=== PATIENT | female | born 1945 | race Caucasian/White ===

== ENCOUNTER → 2016-11-20 | Outpatient (CLI) | payer OTHER ==
[~2016-11-20] MED LIST: ANAPROX DS550 MG PO; BONIVA150 MG; CYMBALTA20 MG PO; FEROSUL325 MG PO; FLEXERIL10 MG PO; HYDROCODONE BIT1 T11 PO; KEFLEX500 MG PO; LIDEX0.05% T; LISINOPRIL5 MG PO; LOVENOX30 MG/0.3 SC; MULTIVITAMIN1 CTB PO; NEURONTIN100 MG; NEURONTIN100 MG PO; PERCOCET 325 MG1 TA7 PO; PREDNISONE20 MG PO; PRILOSEC20 MG PO; SYNTHROID,LEV100 MCG PO; SYNTHROID,LEVOTHROID; TORADOL10 MG PO; VICODIN 5/500 505 MG PO; ZITHROMAX Z PA250 MG PO; ZOLOFT50 MG PO; [UNRECOGNIZED DRUG - OTHER] PO
[2016-11-20 08:06] LABS: BASO # 0.1 10*3/uL (0.0-0.1); BASO % 0.7 % (0.0-1.0); EOS # 0.2 10*3/uL (0.0-0.4); EOS % 2.6 % (1.0-4.0); HEMATOCRIT 41.1 % (37.0-47.0); HEMOGLOBIN 13.4 g/dl (12.0-16.0); LYMPH % 26.8 % (27.0-41.0); MEAN CELL VOLUME 96.9 fl (81.0-99.0); MEAN CORPUSCULAR HGB 31.6 pg (27.0-31.0); MEAN CORPUSCULAR HGB CONC 32.6 g/dl (33.0-37.0); MEAN PLATELET VOLUME 10.6 fl (9.6-12.3); MONO # 0.7 10*3/uL (0.1-1.0); MONO % 9.2 % (3.0-9.0); NEUT # 4.5 10*3/uL (2.3-7.9); NEUT % 60.6 % (47.0-73.0); PLATELET COUNT AUTOMATED 254 10*3/uL (130-400); RED BLOOD COUNT 4.24 10*6/uL (4.10-5.10); RED CELL DISTRI WIDTH 14.4 % (0-14.5); WHITE BLOOD COUNT 7.4 10*3/uL (4.8-10.8)
[2016-11-20 08:42] LABS: ALBUMIN 3.5 gm/dl (3.1-4.5); ALKALINE PHOSPHATASE 91 U/L (45-117); BILIRUBIN, TOTAL 0.4 mg/dl (0.2-1.0); BUN 30 mg/dl (7-24); CARBON DIOXIDE 28 mmol/L (21-32); CHLORIDE 106 mmol/L (98-107); CHOLESTEROL 201 mg/dL (<200); EST GLOM FILT AFRICAN AMERICAN > 60 ml/min; GLUCOSE 96 mg/dL (65-99); HDL CHOLESTEROL 66 mg/dl (40-60); LDL CHOLESTEROL 117 mg/dL (9-159); POTASSIUM 4.5 mmol/L (3.5-5.1); SGOT/AST 22 IU/L (3-35); SGPT/ALT 22 U/L (12-78); SODIUM 142 mmol/L (136-145); TOTAL PROTEIN 7.2 gm/dL (6.4-8.2); TRIGLYCERIDES 88 mg/dl (<150); VLDL CHOLESTEROL 18 mg/dL (6-40)
== END | disposition home or self-care (01) ==
LOC: LAB 07:40
PROVIDERS: Nurse Practitioner Family
DX: J44.9 Chronic obstructive pulmonary disease, unspecified (principal); E03.9 Hypothyroidism, unspecified

== ENCOUNTER → 2016-12-19 | Outpatient (CLI) | payer OTHER | END | disposition home or self-care (01) | LOC: LAB 12:03 | DX: E03.9 Hypothyroidism, unspecified (principal) ==

== ENCOUNTER 2018-07-21 13:23 | Inpatient (IN) | payer OTHER ==
[~2018-07-21] VITALS: Ht 157.5 cm; Wt 76.7 kg
--- NOTE | ~2018-07-21 | CON ---
[place], [place] REPORT OF CONSULTATION NAME: MERRICK HERNANDEZ [facility] #: [id number] UNIT #: [id number] ROOM: 427 DOCTOR: JEAN DHILLON MD BIRTHDATE: [birth year] DOS: 07/22/2018 PULMONARY CONSULTATION, EVALUATION, AND MANAGEMENT CONSULTATION REQUESTED BY: Hospitalist service. REASON FOR CONSULTATION: For assessment of acute abnormal respiratory symptoms. HISTORY OF PRESENT ILLNESS: This is a 73-year-old white female patient, who has been admitted to the hospital as the patient developed acute respiratory symptoms at home prior to admission to the hospital. She started with having upper respiratory tract symptom about 4 weeks ago, which has not been improving at home. The patient has been given 2 antibiotic as medication as an outpatient by the primary care physician, no improvement in respiratory symptoms reported. She has been noted severe coughing and also developed severe general weakness and fatigue. She came into the Emergency Room and was started on antibiotics and other medical management provided resulting in reduction of respiratory symptoms in the last 24 hours. The patient denies symptoms of fever or chills with current symptom. PAST MEDICAL HISTORY: Known with: 1. History of gastroesophageal reflux. 2. Carter's esophagus. 3. Depression. 4. Hypothyroidism. 5. Essential hypertension. 6. History of shingles. PAST SURGICAL HISTORY: Reported several that includes: 1. Appendectomy. 2. Cholecystectomy. 3. Right oophorectomy. 4. Tonsillectomy. 5. Surgery of the cervical spine with fusion of the neck. HOME MEDICATIONS: Home medications were listed as Cymbalta, hydrochlorothiazide, levothyroxine, and ranitidine. CURRENT MEDICATIONS: Current medications which were administered on this hospitalization were reviewed were noted use of DuoNeb, hydrochlorothiazide, Cymbalta, famotidine, levothyroxine, Solu-Medrol 40 mg b.i.d., cefepime IV, morphine sulfate, and other p.r.n. medications. DRUG ALLERGIES: NOTED ALLERGY TO THE [facility] DRUGS. SOCIAL HISTORY: The patient is noted nonsmoker. Denies history of alcohol use or illicit drug use. She is , has 2 children, lives at home. FAMILY HISTORY: The patient's father at age [id number] from complication of congestive heart failure. Mother from complication of metastatic [place], [place] REPORT OF CONSULTATION [id number] UNIT #: [id number] ROOM: 427 DOCTOR: ALEKSANDER CARRILLO MD,JEAN BIRTHDATE: [birth year] vaginal cancer. REVIEW OF SYSTEMS: CONSTITUTIONAL SYMPTOMS: Fatigue and tiredness reported without any symptoms of fever or chills. EYES: Denies any burning, redness, or tenderness. EARS, NOSE, AND THROAT SYMPTOMS: Denies sore throat, hoarseness, otalgia, or postnasal drainage. CARDIOVASCULAR SYSTEM: Denies angina pain, edema, or pain of lower extremities. GASTROINTESTINAL SYMPTOMS: No dysphagia, nausea, vomiting, diarrhea, abdominal pain, hematemesis, melena, or hematochezia. GENITOURINARY SYMPTOMS: Denies dysuria, suprapubic pain, or hematuria. MUSCULOSKELETAL SYMPTOMS: No acute joint pain, redness, or tenderness. CENTRAL NERVOUS SYSTEM: No dizziness, headache, diplopia, or syncopal episodes. Remaining systems were reviewed and they were noted all negative. PHYSICAL EXAMINATION: GENERAL: The patient is a 73-year-old female patient currently noted sitting on the chair without any acute distress this morning of assessment. Height was recorded by the nursing staff as height of 5 feet 2 inches, weight of 169 pounds. VITAL SIGNS: Normal temperature, respiratory rate 17-20, heart rate 99-90, and blood pressure 150/84-145/81. Pulse oxygen saturation recorded as 98% saturation on room air at rest. HEENT: Examination shows head was atraumatic. Eyes nonicterus. NECK: Supple. CARDIOVASCULAR SYSTEM: S1, S2 audible. LUNGS: Noted with occasional wheezing. No crackles. ABDOMEN: Soft, nontender. Bowel sounds present. EXTREMITIES: Noted without any acute edema, clubbing, or cyanosis. MUSCULOSKELETAL: Without any acute deformities. CENTRAL NERVOUS SYSTEM: Cranial nerves 2-12 intact. LABORATORY DATA: Outpatient sputum culture on 07/17/2018 was noted with light growth of Pseudomonas aeruginosa noted pansensitive organism. CBC on admission yesterday has a normal CBC. Lactic acid was 1.3 yesterday as well. The PT and PTT was noted normal yesterday. CMP that was done on admission, BUN was 25, creatinine was 1.13, and potassium was 3.3. The troponin and LFTs are normal. Additional 2 sets of troponin yesterday was normal. CBC remains normal today. CMP this morning noted normal BUN and creatinine. Potassium was normal. IMAGING DATA: Chest x-ray, 2-view, which was done was noted without any acute pulmonary infiltration. IMPRESSION: 1. The patient has been currently admitted to the hospital with acute tracheobronchitis with viral syndrome. 2. Complicated bacterial infection, Pseudomonas aeruginosa. 3. Mild acute kidney injury secondary to intravascular volume depletion and hypokalemia. [place], [place] REPORT OF CONSULTATION NAME: MERRICK HERNANDEZ UNIT #: [id number] ROOM: 427 DOCTOR: ALEKSANDER CARRILLO MD,JEAN BIRTHDATE: [birth year] 4. The patient with acute asthmatic bronchitis was also considered. PLAN OF MANAGEMENT: The patient has been currently getting cefepime, but we will switch the patient to oral Levaquin or ciprofloxacin for the Pseudomonas aeruginosa. The patient tolerated that and doing well. Consider discharge home patient on oral antibiotics administration, minimum of 10 days use. Continuation in the meantime other therapy, plan of management, care plan, and treatment. Usual care with additional treatment changes will be recommended based on progression of the illness. Continue current dose of Solu-Medrol, bronchodilators with conversion to oral prednisone, possibly tomorrow prior to discharge. JEAN ARMIJO MD CM:CONSTR:REPORT OF CONSULTATION 1312 08/02/18 0811 interface
--- NOTE | ~2018-07-21 | PR ---
[place], [place] PROGRESS NOTE NAME: MERRICK HERNANDEZ UNIT #: [id number] ROOM: 427 DOCTOR: JEAN DHILLON MD BIRTHDATE: [birth year] DOS: 07/23/2018 PULMONARY PROGRESS NOTE SUBJECTIVE: The patient was noted comfortable at this time with reduction in respiratory symptoms and coughing, was started on ciprofloxacin yesterday without any side effect, which seemed to be well tolerated. There were no symptoms of fever or chills. Denies symptoms of headache or diplopia or wheezing. OBJECTIVE: VITAL SIGNS: Normal temperature, respiratory rate 18, heart rate 77, blood pressure 129/82. The pulse oxygen saturation was recorded as 97% saturation on room air at rest. HEENT: Head was atraumatic. Eyes nonicterus. NECK: Supple. CARDIOVASCULAR SYSTEM: S1, S2 is audible. LUNGS: The patient without any wheeze or crackle at the present time. ABDOMEN: Soft, nontender. Bowel sounds present. EXTREMITIES: No acute change. IMPRESSION: 1. Acute Pseudomonas aeruginosa. 2. Tracheobronchitis was noted at the present time. 3. Acute kidney injury. 4. Improvement of general weakness and fatigue with current medical management of acute kidney injury and acute bronchitis, Pseudomonas aeruginosa. PLAN OF THERAPY: The patient could be discharged on oral ciprofloxacin for further management. Bronchodilators only in case of wheezing or shortness of breath could be prescribed. Evaluation could be planned for this patient if the patient desires to do so. She could make an appointment in the office for further assessment. [place], [place] PROGRESS NOTE NAME: [id number] UN[facility] #: [id number] ROOM: 427 DOCTOR: JEAN DHILLON MD BIRTHDATE: [birth year] JEAN ARMIJO MD CM:PNTRANS [id number] JEAN CARRILLO MD 07/23/18 2342 interface
--- NOTE | ~2018-07-21 | EKG ---
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
[~2018-07-21 13:23] MED LIST changes: +SYNTHROID,LEVO88 MCG PO
[2018-07-21 13:26] VITALS: BP 129/68
[2018-07-21 13:57] LABS: BASO % 0.4 % (0.0-1.0); EOS # 0.3 10*3/uL (0.0-0.4); EOS % 3.1 % (1.0-4.0); HEMATOCRIT 42.7 % (37.0-47.0); HEMOGLOBIN 14.1 g/dl (12.0-16.0); LYMPH # 2.4 10*3/uL (1.3-4.4); LYMPH % 28.9 % (27.0-41.0); MEAN CORPUSCULAR HGB 31.7 pg (27.0-31.0); MEAN PLATELET VOLUME 10.7 fl (9.6-12.3); MONO # 0.7 10*3/uL (0.1-1.0); MONO % 8.2 % (3.0-9.0); NEUT # 4.8 10*3/uL (2.3-7.9); NEUT % 59.2 % (47.0-73.0); PLATELET COUNT AUTOMATED 271 10*3/uL (130-400); RED BLOOD COUNT 4.45 10*6/uL (4.10-5.10); RED CELL DISTRI WIDTH 14.4 % (0-14.5); WHITE BLOOD COUNT 8.2 10*3/uL (4.8-10.8)
[2018-07-21 13:58] LABS: BILIRUBIN NEGATIVE (NEGATIVE); BLOOD NEGATIVE (NEGATIVE); CLARITY CLEAR (CLEAR); COLOR YELLOW (YELLOW); GLUCOSE NEGATIVE (NEGATIVE); KETONE NEGATIVE (NEGATIVE); LEUKO ESTERASE NEGATIVE (NEGATIVE); NITRITE NEGATIVE (NEGATIVE); PH 5.5 (5.0-9.0); SPECIFIC GRAVITY 1.025 (1.005-1.030); UROBILINOGEN 0.2 E.U./dl (0.2-1.0)
[2018-07-21 14:06] LABS: BACTERIA TRACE; EPITHELIAL CELLS 0-2; WBC 0-2 wbc/hpf (0-5)
[2018-07-21 14:07] LABS: ACT PARTIAL THROMBO TIME 24.9 SECONDS (20.8-31.5)
[2018-07-21 14:26] LABS: ALBUMIN 3.6 gm/dl (3.1-4.5); ALKALINE PHOSPHATASE 92 U/L (45-117); BUN 25 mg/dl (7-24); CHLORIDE 101 mmol/L (98-107); CREATININE 1.13 mg/dL (0.55-1.02); POTASSIUM 3.3 mmol/L (3.5-5.1); SGOT/AST 24 IU/L (3-35); SGPT/ALT 27 U/L (12-78); SODIUM 139 mmol/L (136-145); TOTAL PROTEIN 7.8 gm/dL (6.4-8.2)
[2018-07-21 14:29] LABS: TROPONIN I < 0.015 ng/ml (<0.045)
[2018-07-21 14:55] VITALS: BP 150/84
[2018-07-21 16:00] VITALS: BP 140/80
[2018-07-21 20:00] VITALS: BP 150/66
[2018-07-21] MEDS ORDERED: HYDROCHLOROTHIA25 M1 PO (21:49)
[2018-07-21] MEDS ORDERED: CYMBALTA20 M1 PO (21:52)
[2018-07-21] MEDS ORDERED: RANITIDINE HCL150 M1 PO (21:53)
[2018-07-22] VITALS: BP 145/81
[2018-07-22 06:19] LABS: HEMATOCRIT 40.2 % (37.0-47.0); HEMOGLOBIN 13.4 g/dl (12.0-16.0); LYMPH # 0.8 10*3/uL (1.3-4.4); LYMPH % 14.9 % (27.0-41.0); MEAN CELL VOLUME 94.1 fl (81.0-99.0); MEAN CORPUSCULAR HGB 31.4 pg (27.0-31.0); MEAN CORPUSCULAR HGB CONC 33.3 g/dl (33.0-37.0); MEAN PLATELET VOLUME 10.7 fl (9.6-12.3); MONO # 0.1 10*3/uL (0.1-1.0); MONO % 2.1 % (3.0-9.0); NEUT # 4.4 10*3/uL (2.3-7.9); NEUT % 82.8 % (47.0-73.0); PLATELET COUNT AUTOMATED 241 10*3/uL (130-400); RED BLOOD COUNT 4.27 10*6/uL (4.10-5.10); RED CELL DISTRI WIDTH 14.3 % (0-14.5); WHITE BLOOD COUNT 5.3 10*3/uL (4.8-10.8)
[2018-07-22 06:41] LABS: ALBUMIN 3.2 gm/dl (3.1-4.5); BUN 22 mg/dl (7-24); CHLORIDE 108 mmol/L (98-107); POTASSIUM 3.8 mmol/L (3.5-5.1); SGOT/AST 22 IU/L (3-35); SGPT/ALT 24 U/L (12-78); SODIUM 141 mmol/L (136-145)
[2018-07-22 06:49] LABS: ALKALINE PHOSPHATASE 84 U/L (45-117); CHOLESTEROL 196 mg/dL (<200); CREATININE 0.82 mg/dL (0.55-1.02); FREE T4 1.34 ng/dl (0.76-1.46); HDL CHOLESTEROL 64 mg/dl (40-60); LDL CHOLESTEROL 124 mg/dL (9-159); PHOSPHOROUS 3.4 mg/dL (2.5-4.9); THYROID STIM HORMONE (HS) 0.573 uIU/ml (0.358-4.75); TOTAL PROTEIN 7.5 gm/dL (6.4-8.2); TRIGLYCERIDES 41 mg/dl (<150); VLDL CHOLESTEROL 8 mg/dL (6-40)
[2018-07-22 07:25] LABS: VITAMIN D, 25-HYDROXY 34.6 ng/mL (30-100)
[2018-07-22 08:00] VITALS: BP 124/56
[2018-07-22 12:00] VITALS: BP 117/61
[2018-07-22 16:00] VITALS: BP 134/76
[2018-07-22 20:00] VITALS: BP 135/80
[2018-07-23] VITALS: BP 129/69
[2018-07-23 08:00] VITALS: BP 129/82
[2018-07-23] MEDS ORDERED: MUCINEX ER600 MG PO (09:50)
[2018-07-23] MEDS ORDERED: CIPROFLOXACIN500 M4 PO (09:50)
[2018-07-23] MEDS ORDERED: PREDNISONE10 MG PO (09:50)
[2018-08-13] MEDS ORDERED: MACROBID100 M1 PO (14:52)
== END 2018-07-23 10:15 | disposition home or self-care (01) | DRG 682 ==
LOC: ED 13:23 → EDHOLD 15:17 → 4E 15:31
PROVIDERS: Internal Medicine; Physician Assistant; ADMIT Internal Medicine
DX: N17.0 Acute kidney failure with tubular necrosis (principal); J18.9 Pneumonia, unspecified organism; J44.0 Chronic obstructive pulmonary disease with (acute) lower respiratory infection; E87.6 Hypokalemia; I10 Essential (primary) hypertension; E03.9 Hypothyroidism, unspecified; K21.9 Gastro-esophageal reflux disease without esophagitis; K22.719 Barrett's esophagus with dysplasia, unspecified; F32.9 Major depressive disorder, single episode, unspecified; J20.9 Acute bronchitis, unspecified; B96.5 Pseudomonas (aeruginosa) (mallei) (pseudomallei) as the cause of diseases classified elsewhere; Z96.649 Presence of unspecified artificial hip joint; B34.9 Viral infection, unspecified; Z16.33 Resistance to antiviral drug(s); E66.09 Other obesity due to excess calories; Z88.2 Allergy status to sulfonamides; Z90.49 Acquired absence of other specified parts of digestive tract; Z82.49 Family history of ischemic heart disease and other diseases of the circulatory system; Z90.721 Acquired absence of ovaries, unilateral; Z80.8 Family history of malignant neoplasm of other organs or systems; Z79.899 Other long term (current) drug therapy; Z68.34 Body mass index [BMI] 34.0-34.9, adult

== ENCOUNTER 2018-07-30 12:10 | Emergency (ER) | payer OTHER ==
[~2018-07-30] VITALS: Ht 157.4 cm; Wt 74.8 kg
--- NOTE | ~2018-07-30 | EKG ---
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
[~2018-07-30 12:10] MED LIST changes: +CIPROFLOXACIN500 M4 PO; +CYMBALTA20 M1 PO; +HYDROCHLOROTHIA25 M1 PO; +MUCINEX ER600 MG PO; +PREDNISONE10 MG PO; +RANITIDINE HCL150 M1 PO
[2018-07-30 12:41] LABS: BASO % 0.3 % (0.0-1.0); EOS % 0.1 % (1.0-4.0); HEMATOCRIT 43.6 % (37.0-47.0); HEMOGLOBIN 14.2 g/dl (12.0-16.0); LYMPH # 1.2 10*3/uL (1.3-4.4); LYMPH % 8.6 % (27.0-41.0); MEAN CORPUSCULAR HGB 31.9 pg (27.0-31.0); MEAN CORPUSCULAR HGB CONC 32.6 g/dl (33.0-37.0); MEAN PLATELET VOLUME 10.2 fl (9.6-12.3); MONO # 0.7 10*3/uL (0.1-1.0); MONO % 4.8 % (3.0-9.0); NEUT # 11.7 10*3/uL (2.3-7.9); NEUT % 84.9 % (47.0-73.0); PLATELET COUNT AUTOMATED 322 10*3/uL (130-400); RED BLOOD COUNT 4.45 10*6/uL (4.10-5.10); RED CELL DISTRI WIDTH 15.3 % (0-14.5); WHITE BLOOD COUNT 13.8 10*3/uL (4.8-10.8)
[2018-07-30 13:01] LABS: ALBUMIN 3.4 gm/dl (3.1-4.5); ALKALINE PHOSPHATASE 77 U/L (45-117); BUN 27 mg/dl (7-24); CHLORIDE 104 mmol/L (98-107); POTASSIUM 3.6 mmol/L (3.5-5.1); SGOT/AST 15 IU/L (3-35); SGPT/ALT 27 U/L (12-78); SODIUM 138 mmol/L (136-145); TOTAL PROTEIN 7.2 gm/dL (6.4-8.2)
[2018-07-30 13:05] LABS: TROPONIN I < 0.015 ng/ml (<0.045)
[2018-07-30 13:37] LABS: ACT PARTIAL THROMBO TIME 20.9 SECONDS (20.8-31.5); INTERNATIONAL NORM RATIO 0.9 (2.0-3.5)
[2018-07-30] MEDS ORDERED: XARELTO1 EACH PO (14:11)
[2018-08-13] MEDS ORDERED: MACROBID100 M1 PO (14:52)
== END 2018-07-30 15:13 | disposition home or self-care (01) ==
LOC: ED 12:10
PROVIDERS: Emergency Medicine
DX: I26.99 Other pulmonary embolism without acute cor pulmonale (principal); K21.9 Gastro-esophageal reflux disease without esophagitis; I10 Essential (primary) hypertension; E03.9 Hypothyroidism, unspecified; E66.9 Obesity, unspecified; Z88.2 Allergy status to sulfonamides; Z79.899 Other long term (current) drug therapy; Z90.49 Acquired absence of other specified parts of digestive tract

== ENCOUNTER 2018-08-21 19:40 | Emergency (ER) | payer OTHER ==
[~2018-08-21] VITALS: Ht 157.4 cm; Wt 75.7 kg
[~2018-08-21 19:40] MED LIST changes: +MACROBID100 M1 PO; +XARELTO1 EACH PO
[2018-08-21 20:13] LABS: BASO # 0.1 10*3/uL (0.0-0.1); BASO % 0.6 % (0.0-1.0); EOS # 0.3 10*3/uL (0.0-0.4); EOS % 2.9 % (1.0-4.0); HEMATOCRIT 36.3 % (37.0-47.0); HEMOGLOBIN 11.7 g/dl (12.0-16.0); LYMPH % 22.7 % (27.0-41.0); MEAN CELL VOLUME 99.5 fl (81.0-99.0); MEAN CORPUSCULAR HGB 32.1 pg (27.0-31.0); MEAN CORPUSCULAR HGB CONC 32.2 g/dl (33.0-37.0); MEAN PLATELET VOLUME 10.1 fl (9.6-12.3); MONO % 11.3 % (3.0-9.0); NEUT # 5.5 10*3/uL (2.3-7.9); NEUT % 62.2 % (47.0-73.0); PLATELET COUNT AUTOMATED 293 10*3/uL (130-400); RED BLOOD COUNT 3.65 10*6/uL (4.10-5.10); RED CELL DISTRI WIDTH 15.3 % (0-14.5); WHITE BLOOD COUNT 8.9 10*3/uL (4.8-10.8)
[2018-08-21 20:16] LABS: BILIRUBIN NEGATIVE (NEGATIVE); BLOOD 3+ (NEGATIVE); CLARITY SL CLOUDY (CLEAR); COLOR YELLOW (YELLOW); GLUCOSE NEGATIVE (NEGATIVE); KETONE NEGATIVE (NEGATIVE); LEUKO ESTERASE TRACE (NEGATIVE); NITRITE NEGATIVE (NEGATIVE); PH 5.5 (5.0-9.0); SPECIFIC GRAVITY >= 1.030 (1.005-1.030); UROBILINOGEN 0.2 E.U./dl (0.2-1.0)
[2018-08-21 20:28] LABS: ALBUMIN 3.4 gm/dl (3.1-4.5); ALKALINE PHOSPHATASE 83 U/L (45-117); BUN 28 mg/dl (7-24); CHLORIDE 103 mmol/L (98-107); CREATININE 1.03 mg/dL (0.55-1.02); LIPASE 76 U/L (73-393); POTASSIUM 3.3 mmol/L (3.5-5.1); SGOT/AST 16 IU/L (3-35); SGPT/ALT 20 U/L (12-78); SODIUM 140 mmol/L (136-145); TOTAL PROTEIN 7.1 gm/dL (6.4-8.2)
[2018-08-21 20:36] LABS: RBC TNTC rbc/hpf (0-2)
[2018-08-21 20:37] LABS: BACTERIA 3+
[2018-08-21 20:40] LABS: ACT PARTIAL THROMBO TIME 29.6 SECONDS (20.8-31.5); INTERNATIONAL NORM RATIO 1.1 (2.0-3.5)
[2018-08-21] MEDS ORDERED: K-TAB20 MEQ PO (21:54)
== END 2018-08-21 22:04 | disposition home or self-care (01) ==
LOC: ED 19:40
PROVIDERS: Emergency Medicine Emergency Medical Services
DX: N13.30 Unspecified hydronephrosis (principal); E87.6 Hypokalemia; R31.9 Hematuria, unspecified; R11.0 Nausea; M54.9 Dorsalgia, unspecified; K21.9 Gastro-esophageal reflux disease without esophagitis; I10 Essential (primary) hypertension; E66.9 Obesity, unspecified; E03.9 Hypothyroidism, unspecified; Z79.899 Other long term (current) drug therapy; Z88.2 Allergy status to sulfonamides

== ENCOUNTER → 2018-11-19 | Outpatient (CLI) | payer OTHER ==
[~2018-11-19] MED LIST changes: +K-TAB20 MEQ PO
== END | disposition home or self-care (01) ==
LOC: RESCLI 08:39
DX: I10 Essential (primary) hypertension (principal); K21.9 Gastro-esophageal reflux disease without esophagitis; I27.82 Chronic pulmonary embolism; F32.9 Major depressive disorder, single episode, unspecified; E03.9 Hypothyroidism, unspecified; Z79.899 Other long term (current) drug therapy

== ENCOUNTER 2019-06-06 18:14 | Emergency (ER) | payer OTHER ==
[~2019-06-06] VITALS: Ht 157.4 cm; Wt 78.0 kg
[2019-06-06 21:03] LABS: BASO # 0.1 10*3/uL (0.0-0.1); BASO % 0.9 % (0.0-1.0); EOS # 0.2 10*3/uL (0.0-0.4); EOS % 2.5 % (1.0-4.0); HEMATOCRIT 41.6 % (37.0-47.0); HEMOGLOBIN 13.6 g/dl (12.0-16.0); LYMPH # 2.1 10*3/uL (1.3-4.4); LYMPH % 28.4 % (27.0-41.0); MEAN CELL VOLUME 95.6 fl (81.0-99.0); MEAN CORPUSCULAR HGB 31.3 pg (27.0-31.0); MEAN CORPUSCULAR HGB CONC 32.7 g/dl (33.0-37.0); MEAN PLATELET VOLUME 10.2 fl (9.6-12.3); MONO # 0.6 10*3/uL (0.1-1.0); MONO % 8.3 % (3.0-9.0); NEUT # 4.5 10*3/uL (2.3-7.9); NEUT % 59.6 % (47.0-73.0); PLATELET COUNT AUTOMATED 278 10*3/uL (130-400); RED BLOOD COUNT 4.35 10*6/uL (4.10-5.10); RED CELL DISTRI WIDTH 14.3 % (0-14.5); WHITE BLOOD COUNT 7.5 10*3/uL (4.8-10.8)
[2019-06-06 21:17] LABS: ACT PARTIAL THROMBO TIME 26.3 SECONDS (20.0-32.1)
[2019-06-06 21:18] LABS: ALBUMIN 3.8 gm/dl (3.1-4.5); ALKALINE PHOSPHATASE 102 U/L (45-117); BUN 21 mg/dl (7-24); CHLORIDE 106 mmol/L (98-107); CREATININE 0.95 mg/dL (0.55-1.02); POTASSIUM 3.3 mmol/L (3.5-5.1); SGOT/AST 19 IU/L (3-35); SGPT/ALT 32 U/L (12-78); SODIUM 143 mmol/L (136-145); TOTAL PROTEIN 7.7 gm/dL (6.4-8.2)
== END 2019-06-06 22:31 | disposition home or self-care (01) ==
LOC: ED 18:14
PROVIDERS: Internal Medicine
DX: B96.1 Klebsiella pneumoniae [K. pneumoniae] as the cause of diseases classified elsewhere (principal); R05 Cough; R09.81 Nasal congestion; R53.1 Weakness; R07.89 Other chest pain; K21.9 Gastro-esophageal reflux disease without esophagitis; I10 Essential (primary) hypertension; E03.9 Hypothyroidism, unspecified; E66.9 Obesity, unspecified; M79.7 Fibromyalgia; Z90.49 Acquired absence of other specified parts of digestive tract; Z88.2 Allergy status to sulfonamides; Z79.2 Long term (current) use of antibiotics; Z79.899 Other long term (current) drug therapy

== ENCOUNTER → 2019-06-16 | Outpatient (CLI) | payer OTHER | END | disposition home or self-care (01) | LOC: LAB 06:34 | DX: E87.6 Hypokalemia (principal); A49.8 Other bacterial infections of unspecified site ==

== ENCOUNTER → 2019-06-20 | Outpatient (CLI) | payer OTHER ==
[2019-06-20 12:35] LABS: BASO # 0.1 10*3/uL (0.0-0.1); BASO % 0.8 % (0.0-1.0); EOS # 0.1 10*3/uL (0.0-0.4); EOS % 1.8 % (1.0-4.0); HEMATOCRIT 40.6 % (37.0-47.0); HEMOGLOBIN 13.1 g/dl (12.0-16.0); LYMPH # 1.6 10*3/uL (1.3-4.4); LYMPH % 22.6 % (27.0-41.0); MEAN CELL VOLUME 97.6 fl (81.0-99.0); MEAN CORPUSCULAR HGB 31.5 pg (27.0-31.0); MEAN CORPUSCULAR HGB CONC 32.3 g/dl (33.0-37.0); MEAN PLATELET VOLUME 10.8 fl (9.6-12.3); MONO # 0.7 10*3/uL (0.1-1.0); MONO % 10.1 % (3.0-9.0); NEUT # 4.7 10*3/uL (2.3-7.9); NEUT % 64.6 % (47.0-73.0); PLATELET COUNT AUTOMATED 298 10*3/uL (130-400); RED BLOOD COUNT 4.16 10*6/uL (4.10-5.10); RED CELL DISTRI WIDTH 14.8 % (0-14.5); WHITE BLOOD COUNT 7.3 10*3/uL (4.8-10.8)
[2019-06-21 16:06] LABS: IGG SUBCLASS 1 306 mg/dL (248-810); IGG SUBCLASS 2 281 mg/dL (130-555); IGG SUBCLASS 3 55 mg/dL (15-102); IGG SUBCLASS 4 107 mg/dL (2-96); IMMUNOGLOBULIN G, QNT 870 mg/dL (700-1600)
[2019-06-26 05:03] LABS: IMMUNOGLOBULIN IgE 38 IU/mL (6-495)
== END | disposition home or self-care (01) ==
LOC: LAB 11:31
PROVIDERS: Internal Medicine Critical Care Medicine
DX: Z79.899 Other long term (current) drug therapy (principal)

== ENCOUNTER → 2019-11-11 | Outpatient (CLI) | payer OTHER | END | disposition home or self-care (01) | LOC: COVID19 08:39 | DX: J01.01 Acute recurrent maxillary sinusitis (principal); R05 Cough; I10 Essential (primary) hypertension; R43.2 Parageusia; Z20.828 Contact with and (suspected) exposure to other viral communicable diseases ==

== ENCOUNTER → 2020-06-30 | Outpatient (CLI) | payer OTHER | END | disposition home or self-care (01) | LOC: LAB 13:31 | PROVIDERS: ATTEND Nurse Practitioner Family | DX: K06.8 Other specified disorders of gingiva and edentulous alveolar ridge (principal); Z79.01 Long term (current) use of anticoagulants ==

== ENCOUNTER → 2020-10-01 | Outpatient (CLI) | payer OTHER | END | disposition home or self-care (01) | LOC: RAD 10:15 | PROVIDERS: ATTEND Nurse Practitioner Family | DX: J02.9 Acute pharyngitis, unspecified (principal); J40 Bronchitis, not specified as acute or chronic; R53.83 Other fatigue; R05 Cough ==

== ENCOUNTER → 2021-04-19 | Outpatient (CLI) | payer OTHER ==
[~2021-04-19] MED LIST changes: +FLOVENT HFA10.6 GM IH
== END | disposition home or self-care (01) ==
LOC: US 15:00
PROVIDERS: ATTEND Nurse Practitioner Family
DX: M71.21 Synovial cyst of popliteal space [Baker], right knee (principal)

== ENCOUNTER → 2021-04-21 | Outpatient (CLI) | payer OTHER | END | disposition home or self-care (01) | LOC: RAD 12:24 | PROVIDERS: ATTEND Nurse Practitioner Family | DX: M79.604 Pain in right leg (principal) ==

== ENCOUNTER → 2022-01-24 | Outpatient (CLI) | payer OTHER ==
[2022-01-24 12:24] LABS: BASO # 0.1 10*3/uL (0.0-0.1); BASO % 0.8 % (0.0-1.0); EOS # 0.1 10*3/uL (0.0-0.4); EOS % 2.1 % (1.0-4.0); HEMATOCRIT 40.5 % (37.0-47.0); LYMPH # 1.7 10*3/uL (1.3-4.4); LYMPH % 27.9 % (27.0-41.0); MEAN CELL VOLUME 97.8 fl (81.0-99.0); MEAN CORPUSCULAR HGB 31.6 pg (27.0-31.0); MEAN CORPUSCULAR HGB CONC 32.3 g/dl (33.0-37.0); MEAN PLATELET VOLUME 10.3 fl (9.6-12.3); MONO # 0.7 10*3/uL (0.1-1.0); MONO % 10.7 % (3.0-9.0); NEUT # 3.5 10*3/uL (2.3-7.9); NEUT % 58.3 % (47.0-73.0); PLATELET COUNT AUTOMATED 273 10*3/uL (130-400); RED BLOOD COUNT 4.14 10*6/uL (4.10-5.10); RED CELL DISTRI WIDTH 14.4 % (0-14.5); WHITE BLOOD COUNT 6.1 10*3/uL (4.8-10.8)
[2022-01-24 12:45] LABS: BUN 23 mg/dl (7-24); CHLORIDE 108 mmol/L (98-107); CHOLESTEROL 186 mg/dL (<200); CREATININE 0.83 mg/dL (0.55-1.02); LDL CHOLESTEROL 98 mg/dL (9-159); POTASSIUM 4.8 mmol/L (3.5-5.1); SGOT/AST 15 IU/L (3-35); SGPT/ALT 20 U/L (12-78); SODIUM 143 mmol/L (136-145); TOTAL PROTEIN 7.3 gm/dL (6.4-8.2); TRIGLYCERIDES 109 mg/dl (<150)
[2022-01-24 12:53] LABS: ALKALINE PHOSPHATASE 82 U/L (45-117); THYROID STIM HORMONE (HS) 0.849 uIU/ml (0.358-4.75)
== END ==
LOC: LAB 11:45
PROVIDERS: ATTEND Nurse Practitioner Family
DX: I10 Essential (primary) hypertension (principal); E03.9 Hypothyroidism, unspecified

== ENCOUNTER → 2022-02-01 | Outpatient (CLI) | payer OTHER | LOC: CARD 11:27 | PROVIDERS: ATTEND Nurse Practitioner Family | DX: J44.9 Chronic obstructive pulmonary disease, unspecified (principal); K22.70 Barrett's esophagus without dysplasia; E03.9 Hypothyroidism, unspecified; I10 Essential (primary) hypertension; R05.9 Cough, unspecified; Z23 Encounter for immunization ==

== ENCOUNTER → 2022-02-14 | Outpatient (CLI) | payer OTHER | LOC: CARD 02:30 | PROVIDERS: ATTEND Nurse Practitioner Family | DX: I10 Essential (primary) hypertension (principal); K22.70 Barrett's esophagus without dysplasia; E03.9 Hypothyroidism, unspecified; R05.9 Cough, unspecified; R06.02 Shortness of breath; Z23 Encounter for immunization ==

== ENCOUNTER → 2022-07-01 | Outpatient (CLI) | payer OTHER ==
[2022-07-01 13:17] LABS: BASO # 0.1 10*3/uL (0.0-0.1); BASO % 0.9 % (0.0-1.0); EOS # 0.2 10*3/uL (0.0-0.4); EOS % 2.6 % (1.0-4.0); HEMATOCRIT 39.4 % (37.0-47.0); LYMPH # 1.8 10*3/uL (1.3-4.4); LYMPH % 27.9 % (27.0-41.0); MEAN CELL VOLUME 98.3 fl (81.0-99.0); MEAN CORPUSCULAR HGB 31.7 pg (27.0-31.0); MEAN CORPUSCULAR HGB CONC 32.2 g/dl (33.0-37.0); MEAN PLATELET VOLUME 10.7 fl (9.6-12.3); MONO # 0.7 10*3/uL (0.1-1.0); MONO % 10.6 % (3.0-9.0); NEUT # 3.7 10*3/uL (2.3-7.9); NEUT % 57.8 % (47.0-73.0); PLATELET COUNT AUTOMATED 259 10*3/uL (130-400); RED BLOOD COUNT 4.01 10*6/uL (4.10-5.10); RED CELL DISTRI WIDTH 13.8 % (0-14.5); WHITE BLOOD COUNT 6.4 10*3/uL (4.8-10.8)
[2022-07-01 13:36] LABS: ALKALINE PHOSPHATASE 87 U/L (46-116); BUN 21 mg/dl (9-23); CHLORIDE 105 mmol/L (98-107); CHOLESTEROL 187 mg/dL (<200); LDL CHOLESTEROL 113 mg/dL (9-159); POTASSIUM 4.5 mmol/L (3.4-5.1); SGPT/ALT 24 U/L (10-49); THYROID STIM HORMONE (HS) 1.351 uIU/ml (0.550-4.780); TOTAL PROTEIN 6.7 gm/dL (6.0-8.0); TRIGLYCERIDES 78 mg/dl (<150)
== END | disposition home or self-care (01) ==
LOC: LAB 12:11
PROVIDERS: ATTEND Nurse Practitioner Family
DX: I10 Essential (primary) hypertension (principal); E03.9 Hypothyroidism, unspecified; K21.9 Gastro-esophageal reflux disease without esophagitis

== ENCOUNTER → 2022-09-06 | Outpatient (CLI) | payer OTHER | END | disposition home or self-care (01) | LOC: RAD 11:30 | PROVIDERS: ATTEND Nurse Practitioner Family | DX: J44.9 Chronic obstructive pulmonary disease, unspecified (principal) ==

== ENCOUNTER 2023-04-25 22:53 | Emergency (ER) | payer OTHER ==
[~2023-04-25] VITALS: Ht 157.4 cm; Wt 76.7 kg
[2023-04-25] MEDS ORDERED: PEPCID20 MG PO (23:18)
[2023-04-25] MEDS ORDERED: OMEPRAZOLE MAGN20 MG PO (23:18)
[2023-04-25] MEDS ORDERED: HYDRALAZINE10 MG PO (23:19)
[2023-04-25] MEDS ORDERED: VIBRAMYCIN HYC100 MG PO (23:19)
[2023-04-26 00:02] LABS: BASO # 0.1 10*3/uL (0.0-0.1); BASO % 0.8 % (0.0-1.0); EOS # 0.1 10*3/uL (0.0-0.4); EOS % 1.5 % (1.0-4.0); HEMATOCRIT 41.9 % (37.0-47.0); LYMPH % 28.3 % (27.0-41.0); MEAN CELL VOLUME 98.6 fl (81.0-99.0); MEAN CORPUSCULAR HGB 31.1 pg (27.0-31.0); MEAN CORPUSCULAR HGB CONC 31.5 g/dl (33.0-37.0); MEAN PLATELET VOLUME 9.9 fl (9.6-12.3); MONO # 0.6 10*3/uL (0.1-1.0); MONO % 8.6 % (3.0-9.0); NEUT # 4.4 10*3/uL (2.3-7.9); NEUT % 60.7 % (47.0-73.0); PLATELET COUNT AUTOMATED 263 10*3/uL (130-400); RED BLOOD COUNT 4.25 10*6/uL (4.10-5.10); RED CELL DISTRI WIDTH 13.9 % (0-14.5); WHITE BLOOD COUNT 7.2 10*3/uL (4.8-10.8)
[2023-04-26 00:25] LABS: ALKALINE PHOSPHATASE 109 U/L (46-116); BUN 17 mg/dl (9-23); CHLORIDE 106 mmol/L (98-107); POTASSIUM 3.8 mmol/L (3.4-5.1); SGPT/ALT 30 U/L (5-49); TOTAL PROTEIN 6.9 gm/dL (6.0-8.0)
[2023-04-26 00:35] LABS: BILIRUBIN Negative (Negative); BLOOD Negative (Negative); CLARITY Clear (Clear); COLOR Yellow (Yellow); GLUCOSE Negative (Negative); KETONE Negative (Negative); LEUKO ESTERASE Negative (Negative); NITRITE Negative (Negative); PH 5.5 (4.5-8.0); UROBILINOGEN 0.2 E.U./dl (0.0-1.0)
[2023-04-26 00:37] LABS: ACT PARTIAL THROMBO TIME 29.1 SECONDS (20.0-32.1)
[2023-04-26 01:01] LABS: RBC 0-2 rbc/hpf (0-2); WBC 0-2 wbc/hpf (0-5)
[2023-04-26] MEDS ORDERED: SENNA-S 8.6-501 EACH PO (02:15)
== END 2023-04-26 02:18 | disposition home or self-care (01) ==
LOC: ED 22:53
PROVIDERS: Family Medicine
DX: K59.00 Constipation, unspecified (principal); R10.9 Unspecified abdominal pain; I10 Essential (primary) hypertension; M79.7 Fibromyalgia; Z88.2 Allergy status to sulfonamides; Z90.49 Acquired absence of other specified parts of digestive tract; Z98.890 Other specified postprocedural states; Z90.89 Acquired absence of other organs; Z95.5 Presence of coronary angioplasty implant and graft; K21.9 Gastro-esophageal reflux disease without esophagitis